=== PATIENT | female | born 1960 | race Caucasian/White ===

== ENCOUNTER 2017-11-27 05:46 | Day surgery (SDC) | payer BC ==
[2017-11-27] MEDS ORDERED: LR 1,000 ML IV (06:00)
[2017-11-27] MEDS ORDERED: PROPOFOL 200 MG/20 ML VIAL As Ordered ×2 (07:18→08:06)
[2017-11-27] MEDS ORDERED: fentaNYL 100 MCG/2 ML INJECTION (J3010) As Ordered (07:18)
[2017-11-27] MEDS ORDERED: LIDOCAINE 2% INJ 100 MG/5 ML SDV (FOR ANES.) As Ordered (07:18)
[2017-11-27] MEDS ORDERED: MIDAZOLAM INJ 2 MG/2 ML VIAL (J2250) As Ordered (07:18)
[2017-11-27] MEDS ORDERED: ONDANSETRON 4MG/2ML VIAL (J2405) As Ordered (07:18)
[2017-11-27] MEDS: LIDOCAINE 2% MDV 20 ML VIAL As Ordered (07:35)
[2017-11-27] MEDS ORDERED: ePHEDrine SULFATE 25 MG/5 ML(5MG/ML) SYRINGE As Ordered (08:03)
[2017-11-27] MEDS: NEOSPORIN GU IRRIG 20 ML VIAL As Ordered (08:05)
[2017-11-27] MEDS: BACITRACIN PWD 50,000 UNITS VIAL As Ordered (08:05)
[2017-11-27] MEDS: BUPIVACAINE HCL 0.5% 30 ML VIAL As Ordered (08:09)
[2017-11-27] MEDS: dexameTHASONE 4 MG/ML 1ML VIAL (J1100) As Ordered (08:09)
== END 2017-11-27 09:52 | disposition home or self-care (01) ==
LOC: M SDC 05:46
DX: M20.12 Hallux valgus (acquired), left foot (principal); F32.9 Major depressive disorder, single episode, unspecified; Z79.899 Other long term (current) drug therapy
CPT/HCPCS: 28296

== ENCOUNTER → 2019-02-16 | Outpatient (REF) | payer BC ==
[~2019-02-16] MED LIST: CALC1TAB55 PO; MONT10TA2; MULT1TAB9 PO; VITATAB11 PO; WELLTAB40 PO; [UNRECOGNIZED DRUG - OTHER]
== END ==
LOC: M LAB LCGH 12:04
PROVIDERS: ATTEND Obstetrics & Gynecology
DX: Z12.4 Encounter for screening for malignant neoplasm of cervix (principal)

== ENCOUNTER → 2019-09-15 | Outpatient (REF) | payer BC ==
[~2019-09-15] MED LIST changes: -MONT10TA2; +MONT10TA4
== END ==
LOC: M LAB REF 16:50
PROVIDERS: ATTEND Physician Assistant
DX: C44.622 Squamous cell carcinoma of skin of right upper limb, including shoulder (principal)

== ENCOUNTER → 2019-10-26 | Outpatient (CLI) | payer BC | LOC: M LABSMTC 14:12 | PROVIDERS: ATTEND Ophthalmology | DX: Z01.818 Encounter for other preprocedural examination (principal); Z11.59 Encounter for screening for other viral diseases; Z20.828 Contact with and (suspected) exposure to other viral communicable diseases ==